=== PATIENT | female | born 1940 | race Caucasian/White ===

== ENCOUNTER 2020-10-02 21:14 | Inpatient (IN) | payer MEDICARE, BC ==
[~2020-10-02] VITALS: Ht 304.8 cm; Wt 75.0 kg
[2020-10-02 22:28] LABS: ALANINE AMINOTRANSFERASE 33 U/L (12-78); ALBUMIN 4.1 G/DL (3.4-5.0); ALBUMIN/GLOBULIN RATIO 1.1 (1.1-1.5); ALKALINE PHOSPHATASE 60 IU/L (46-116); ANION GAP 7 (8-16); ASPARTATE AMINO TRANSFERASE 26 U/L (10-37); BILIRUBIN,TOTAL 0.4 MG/DL (0.1-1.0); BLOOD UREA NITROGEN 17 MG/DL (7-18); BUN/CREATININE RATIO 19.1 (6.6-38.0); CALCIUM 9.6 MG/DL (8.5-10.1); CHLORIDE 107 MMOL/L (99-107); CREATININE 0.89 MG/DL (0.40-0.90); GLUCOSE 100 MG/DL (70-104); POTASSIUM 3.8 MMOL/L (3.5-5.1); SODIUM 143 MMOL/L (135-145); TOTAL CARBON DIOXIDE 29.5 MMOL/L (24-32); eGFR 61 ML/MIN
[2020-10-02 22:30] LABS: BASOPHILS # (AUTO) 0.1 X10'3 (0-0.2); BASOPHILS % (AUTO) 0.7 % (0-1); EOSINOPHILS # (AUTO) 0.1 X10'3 (0-0.9); EOSINOPHILS % (AUTO) 1.7 % (0-6); HEMATOCRIT 41.5 % (35.0-45.0); HEMOGLOBIN 13.7 g/dl (12.0-16.0); LYMPHOCYTES % (AUTO) 28.5 % (21-51); MEAN CORPUSCULAR HEMOGLOBIN 29.9 PG (27.0-31.0); MEAN CORPUSCULAR VOLUME 90.5 FL (78-98); MONOCYTES # (AUTO) 0.6 X10'3 (0-0.9); MONOCYTES % (AUTO) 8.3 % (2-12); NEUTROPHILS # (AUTO) 4.2 X10'3 (1.8-7.7); NEUTROPHILS % (AUTO) 60.8 % (42-75); PLATELET COUNT 340 X10'3 (140-440); RED BLOOD COUNT 4.58 X10'6 (4.20-5.60); RED CELL DISTRIBUTION WIDTH 14.2 % (11.5-14.5)
[2020-10-03] VITALS (9 sets, daily range): BP systolic 107–151; BP diastolic 58–84
[2020-10-03] MEDS ORDERED: nitroGLYCERIN 0.4mg/hour patch TD ONE (01:35)
[2020-10-03] MEDS ORDERED: aspirin 81mg tab.chew PO ONE (01:35)
--- NOTE | 2020-10-03 02:00 | NUR ---
pt told she is now npo
[2020-10-03] MEDS ORDERED: PRAV40TA3 PO (02:08)
[2020-10-03] MEDS ORDERED: ondansetron/PF 4mg/2ml inj IV PRN (03:00)
[2020-10-03] MEDS ORDERED: potassium CL 10mEq/100ml bag 100 ML IV PRN ×2 (03:00)
[2020-10-03] MEDS ORDERED: potassium Cl 20 mEq SR tablet PO PRN ×2 (03:00)
[2020-10-03] MEDS ORDERED: metoprolol tartrate 50mg tablet PO ONE (03:00)
[2020-10-03] MEDS ORDERED: mag hydrox/Alum hydrox/simeth 30ml oral suspension PO PRN (03:00)
[2020-10-03] MEDS ORDERED: acetaminophen 325mg tablet PO PRN (03:00)
[2020-10-03] MEDS ORDERED: magnesium hydroxide 30ml (MOM) UD suspension PO PRN (03:00)
[2020-10-03] MEDS ORDERED: aminophylline 250mg/10ml inj. IV PRN (03:05)
[2020-10-03] MEDS ORDERED: metoprolol tartrate 1mg/ml inj IV PRN (03:05)
[2020-10-03] MEDS ORDERED: nitroGLYCERIN 0.4mg SUBLingual tab SL PRN (03:05)
[2020-10-03 03:22] LABS: HEMOGLOBIN A1C 6.2 % (4.5-6.2)
--- NOTE | 2020-10-03 05:22 | NUR ---
Pt removed IV and got dressed twice after being told she was to be admitted. Pt states she misunderstood. Pt appears to be slightly confused. 3rd IV started in left AC and coban wrapped with intact CSM to left distal arm/hand. Pt tucked into bed and instructed to rest if she can and keep her gown on and IV in. Pt agrees.
[2020-10-03] MEDS ORDERED: regadenoson 0.4mg/5ml syringe IV ONE (06:00)
--- NOTE | 2020-10-03 06:35 | NUR ---
Pt stating she wants to leave, explained to her that her cardiac enzymes continue to rise. She is adament that she is going to leave. Pt does not remember anyone ever talking to her regarding why she is here. Addendum: 10/03/20 at 0842 by [email or web address] Pt has pulled out her IV again and gotten herself dressed.
[2020-10-03] MEDS ORDERED: heparin, porcine 5000 units/ml vial SQ SCH (08:00)
[2020-10-03] MEDS: pravastatin 40mg tablet PO SCH (08:00)
[2020-10-03] MEDS: aspirin 81mg tablet.DR PO SCH (08:00)
[2020-10-03] MEDS: K and/or MAG REPLACEMENT MC SCH ×2 (08:00→20:00)
--- NOTE | 2020-10-03 08:42 | NUR ---
Pt does not remember any of the conversations regarding why she is here. Pt had gotten herself dressed again and adament she is leaving. Pt has forgotten that she drove herself here. Pt states that she does not have any family members. Spoke with Dr Rider and she gave a verbal order for a Chemical Dependency Therapist Consult to evaluate the pt's mental status.
--- NOTE | 2020-10-03 10:30 | NUR ---
Gayle Phan called and said it will probably around 12p.m. when they come get her. The will give another heads up so that we can have the pt ready.
--- NOTE | 2020-10-03 10:44 | NUR ---
Pt's daughter phoned from [facility] to inquire about the patient's status. She reports she will attempt to get off work and come to the hospital to assist in any way possible to manage her mother's situation and help with memory issues for her mother.
--- NOTE | 2020-10-03 11:04 | NUR ---
Pt continues to refuse being hooked up to the color television console monitor and vital signs. Pt did allow for a set of vital signs to be taken.
--- NOTE | 2020-10-03 12:05 | NUR ---
Spoke with Dimitri, he is heading this way from [place] now and should be here in about 20-30 minutes.
--- NOTE | 2020-10-03 12:10 | NUR ---
Spoke with Swetha, Evaporative Cooler Installer regarding pt and the stress test regarding pt's willingness to have the stress test. We are to call her back when Dimitri gets here to see if he is willing to walk the pt through the test.
--- NOTE | 2020-10-03 12:20 | NUR ---
[employer] Tech at bedside. Pt told her that she had toast, cheese, and tea about 30 minutes ago. Let the tech know that she has not had anything to eat.
--- NOTE | 2020-10-03 12:24 | NUR ---
Pt trying to leave. Let pt know Dimitri was on his way to see her. Pt redirected back to her room.
--- NOTE | 2020-10-03 12:25 | NUR ---
Dimitri is here at pt's bedside.
--- NOTE | 2020-10-03 12:30 | NUR ---
[employer] Worker here, explained the pt's situation and gave her the pt's daughter's phone number.
--- NOTE | 2020-10-03 12:33 | NUR ---
Spoke with Suasn in [facility]uc [facility] letting her know that the pt is agreeable to the test and that Dimitri is willing to come with the pt to the test.
--- NOTE | 2020-10-03 12:47 | NUR ---
Pt very cooperative now that Dimitri is here. Pt willingly changed into a hospital gown and allowed us to start an IV.
--- NOTE | 2020-10-03 13:17 | NUR ---
Susan from [employer] will be up shortly to inject the pt with the medicine.
--- NOTE | 2020-10-03 13:32 | NUR ---
Susan from [email or web address] came and injected the medicine into the pt and let the pt and Dimitri know that she would be back in a little bit to take the pt for the test.
--- NOTE | 2020-10-03 13:47 | NUR ---
Dimitri continues to be at bedside. Pt is fully cooperative with Dimitri at bedside.
--- NOTE | 2020-10-03 14:12 | NUR ---
Pt's daughter is Elin. She can be reached at [phone].
--- NOTE | 2020-10-03 16:30 | NUR ---
Patient in room MED 314. I have received report from [facility] and had the opportunity to ask questions and assume patient care. Pt returned from [facility] Scan. Waiting for results. Assessment completed and no changes noted from intial museum assistant, but pt calm andno chest pain noted. Pt in bed her friend Dimitri is with her due to her being confused and resisting care, pulling out IV's. Addendum: 10/03/20 at 1853 by Katie Boone RN She is calm and responsive to care. Her and Dimitri oriented to room, call light, etc And both stated understanding.
[2020-10-03] MEDS ORDERED: heparin 10,000 units/1 ML INJ IV ONE (16:40)
[2020-10-03] MEDS ORDERED: heparin 10,000 units/1 ML INJ IV PRN (16:40)
[2020-10-03] MEDS ORDERED: heparin 25,000 UNIT/250ml bag 250 ML IV SCH (16:55)
--- NOTE | 2020-10-03 17:19 | NUR ---
NOTIFIED PAGER ID: [phone] MESSAGE: Obdulio CONRAD LARIOS. I NUC MED CALLED AND SAID RESULTS FOR [facility]EL[facility] SCAN MAY NOT COME BACK FROM RADIOLOGY UNTIL 399. JOSE DAVID IN NUC MED SAYS HE CAN ANSWER QUESTIONS. TISHA [facility] EXT [id number]
[2020-10-03 17:30] LABS: PARTIAL THROMBOPLASTIN TIME 25 SECONDS (22-32)
[2020-10-03 17:36] LABS: BASOPHILS # (AUTO) 0.1 X10'3 (0-0.2); BASOPHILS % (AUTO) 0.6 % (0-1); EOSINOPHILS # (AUTO) 0.1 X10'3 (0-0.9); EOSINOPHILS % (AUTO) 0.8 % (0-6); HEMOGLOBIN 13.2 g/dl (12.0-16.0); LYMPHOCYTES # (AUTO) 1.3 X10'3 (1.1-4.8); MEAN CORPUSCULAR HEMOGLOBIN 29.9 PG (27.0-31.0); MEAN CORPUSCULAR HGB CONC 32.9 g/dL (33.0-36.5); MEAN CORPUSCULAR VOLUME 90.9 FL (78-98); MEAN PLATELET VOLUME 7.8 FL (7.4-10.4); MONOCYTES # (AUTO) 0.7 X10'3 (0-0.9); MONOCYTES % (AUTO) 6.9 % (2-12); NEUTROPHILS # (AUTO) 7.9 X10'3 (1.8-7.7); NEUTROPHILS % (AUTO) 78.7 % (42-75); PLATELET COUNT 321 X10'3 (140-440); RED CELL DISTRIBUTION WIDTH 14.2 % (11.5-14.5); WHITE BLOOD COUNT 10.1 X10'3 (4.5-11.0)
--- NOTE | 2020-10-03 18:00 | NUR ---
Problems reprioritized. Patient report given, questions answered & plan of care reviewed with Tammie [facility].
--- NOTE | 2020-10-03 18:43 | NUR ---
Patient in room MED 314. I have received report from Katie [facility] and had the opportunity to ask questions and assume patient care.
--- NOTE | 2020-10-03 21:35 | NUR ---
Per telephone call with Dr. Valdes, patient may be on a heart healthy diet, then NPO at midnight.
[2020-10-04 00:26] LABS: CLARITY,URINE CLEAR (Clear); COLOR,URINE YELLOW (Yellow); GLUCOSE, URINE NEGATIVE (Neg); KETONES,URINE TRACE mg/dl (Neg); LEUKOCYTE ESTERASE ,URINE NEGATIVE (Neg); NITRITES, URINE NEGATIVE (Neg); OCCULT BLOOD,URINE SMALL (Neg); PROTEIN,URINE NEGATIVE (Neg); UA COLLECTION TYPE CLN CATCH MIDSTREAM; UROBILINOGEN,URINE 0.2 E.U/dL (0.2-1.0)
[2020-10-04 00:37] LABS: BACTERIA,URINE FEW /HPF (Neg); SQUAMOUS EPITHELIAL CELL,UR FEW /LPF (FEW); WBC,URINE 0-4 /HPF (0-4)
[2020-10-04 02:00] VITALS: BP 121/64
--- NOTE | 2020-10-04 04:45 | NUR ---
patient is non compliant and removes her nasal cannula frequently. she desats in the 70-80s. RN educates and will continue to monitor the patient.
--- NOTE | 2020-10-04 05:34 | NUR ---
patient is refusing to have her leads on. RN educated patient on importance. RN will continue to monitor
[2020-10-04 06:00] VITALS: BP 124/69
--- NOTE | 2020-10-04 06:00 | NUR ---
Patient in room MED [facility]. [facility] had [facility] opportunity to ask questions and assume patient care.
--- NOTE | 2020-10-04 06:00 | NUR ---
Patient in room MED 316. I have received report from Robyn [facility] and had the opportunity to ask questions and assume patient care.
--- NOTE | 2020-10-04 06:13 | NUR ---
Problems reprioritized. Patient report given, questions answered & plan of care reviewed with Vaishali [facility]. Addendum: 10/04/20 at 0631 by Robyn Coronel RN Katie [facility]
--- NOTE | 2020-10-04 06:31 | NUR ---
patient is refusing lab to draw her cardiac PTT. I educated patient on importance of lab and importance of medication. Patient refuses. RN will continue to educate and monitor. Lab will come back within an hour to attempt to draw lab.
--- NOTE | 2020-10-04 07:00 | NUR ---
Pt has been refusing Labs, Vital Signs, and assessment this morning. Her daughter is at bedside and trying to convince her but she continues to refuse and not let anyone touch her. will continue to try.
--- NOTE | 2020-10-04 08:16 | NUR ---
DR. VANESSA PAGED: PAGER ID: [phone] MESSAGE: [phone]: HARRIET Patino neg yesterday, ok to d/c heparin? pt non-compliant with all care. nurse Radha [phone]
--- NOTE | 2020-10-04 08:20 | NUR ---
HEP GTT OFF, PATIENT NOT WANTING TO REMAIN COMPLIANT WITH MEDICATION THERAPY, MD PAGED, AWAITING CALL BACK. STRESS TEST NEGATIVE YESTERDAY. SPOKE WITH DAUGHTER @ BEDSIDE ABOUT POSSIBILITY OF DISCHARGE HOME FOR PATIENT. DAUGHTER WANTING TO SPEAK WITH CASE MANAGEMENT: FAMILY CONCERNED ABOUT PATIENTS ABILITY TO CARE FOR SELF AT HOME, PATIENT CURRENTLY LIVES ALONE, CLOSEST DAUGHTER LIVES IN [place], [place]; FRIENDS NEARBY ABLE TO WELLNESS CHECK OCCASIONALLY.
[2020-10-04 09:14] LABS: BASOPHILS % (AUTO) 0.6 % (0-1); EOSINOPHILS # (AUTO) 0.2 X10'3 (0-0.9); EOSINOPHILS % (AUTO) 2.6 % (0-6); HEMATOCRIT 41.3 % (35.0-45.0); HEMOGLOBIN 13.6 g/dl (12.0-16.0); LYMPHOCYTES # (AUTO) 2.3 X10'3 (1.1-4.8); MEAN CORPUSCULAR HEMOGLOBIN 29.7 PG (27.0-31.0); MEAN CORPUSCULAR VOLUME 90.1 FL (78-98); MEAN PLATELET VOLUME 7.9 FL (7.4-10.4); MONOCYTES # (AUTO) 0.6 X10'3 (0-0.9); MONOCYTES % (AUTO) 8.5 % (2-12); NEUTROPHILS % (AUTO) 56.3 % (42-75); PLATELET COUNT 333 X10'3 (140-440); RED BLOOD COUNT 4.59 X10'6 (4.20-5.60); RED CELL DISTRIBUTION WIDTH 14.3 % (11.5-14.5); WHITE BLOOD COUNT 7.2 X10'3 (4.5-11.0)
[2020-10-04 09:35] LABS: ALANINE AMINOTRANSFERASE 32 U/L (12-78); ALBUMIN 3.7 G/DL (3.4-5.0); ALBUMIN/GLOBULIN RATIO 0.9 (1.1-1.5); ALKALINE PHOSPHATASE 63 IU/L (46-116); ANION GAP 8 (8-16); ASPARTATE AMINO TRANSFERASE 27 U/L (10-37); BILIRUBIN,TOTAL 0.5 MG/DL (0.1-1.0); BLOOD UREA NITROGEN 15 MG/DL (7-18); BUN/CREATININE RATIO 18.3 (6.6-38.0); CALCIUM 9.1 MG/DL (8.5-10.1); CHLORIDE 106 MMOL/L (99-107); CHOLESTEROL 272 MG/DL (0-200); CREATININE 0.82 MG/DL (0.40-0.90); GLUCOSE 101 MG/DL (70-104); HDL CHOLESTEROL 54 MG/DL (35-60); LDL CHOLESTEROL 190 MG/DL (50-100); POTASSIUM 3.9 MMOL/L (3.5-5.1); SODIUM 143 MMOL/L (135-145); TOTAL CARBON DIOXIDE 29.2 MMOL/L (24-32); TOTAL PROTEIN 7.6 G/DL (6.4-8.2); TRIGLYCERIDES 145 MG/DL (20-135); eGFR 67 ML/MIN
[2020-10-04 10:00] VITALS: BP 130/72
[2020-10-04] MEDS: pravastatin 40mg tablet PO SCH (11:30)
[2020-10-04] MEDS: aspirin 81mg tablet.DR PO SCH (11:31)
--- NOTE | 2020-10-04 12:10 | NUR ---
The pt had a negative Carey and all VSS have remained stable. Her daughter is with her at bedside. Pt is much clearer today and A&O x4 at this time. Discharge orders received. IV discontinued and no s/s of complications. Pt and daughter given all discharge instructions and education and they both stated understanding. All belongings accounted for. Pt was escorted in a wheelchair to her daughter awaiting in vehicle to drive her home.
== END 2020-10-04 12:10 | disposition home or self-care (01) | DRG 282 ==
LOC: ER 21:18 → ED HOLD 10-03 03:00 → MED 3N 10-03 14:42
PROVIDERS: ADMIT Internal Medicine; ATTEND Internal Medicine
PROC: 4A02XM4 Measurement of Cardiac Total Activity, External Approach (ICD-10-PCS; principal; 2020-10-03)
PROC: 3E073KZ Introduction of Other Diagnostic Substance into Coronary Artery, Percutaneous Approach (ICD-10-PCS; 2020-10-03)
DX: I21.4 Non-ST elevation (NSTEMI) myocardial infarction (principal); E78.5 Hyperlipidemia, unspecified; Z20.828 Contact with and (suspected) exposure to other viral communicable diseases; Z79.899 Other long term (current) drug therapy
CPT/HCPCS: 36415; 71045; 78452; 80053; 80061; 81001; 83036; 83880; 84484; 85025; 85610; 85730; 87081; 87635; 93005; 93017; 93306; 93308; 99285; A9500; C9803; G0378; J1644; J2405; J2785

== ENCOUNTER 2020-12-09 08:51 | Emergency (ER) | payer MEDICARE, BC ==
[~2020-12-09] VITALS: Ht 152.4 cm; Wt 92.2 kg
[~2020-12-09 08:51] MED LIST: PRAV40TA3 PO
[2020-12-09 10:04] LABS: CLARITY,URINE SLIGHTLY CLOUDY (Clear); COLOR,URINE YELLOW (Yellow); GLUCOSE, URINE NEGATIVE (Neg); KETONES,URINE NEGATIVE (Neg); LEUKOCYTE ESTERASE ,URINE TRACE (Neg); NITRITES, URINE NEGATIVE (Neg); OCCULT BLOOD,URINE MODERATE (Neg); PROTEIN,URINE 30 mg/dl (Neg); UROBILINOGEN,URINE 0.2 E.U/dL (0.2-1.0)
[2020-12-09 10:09] LABS: UA COLLECTION TYPE CLN CATCH MIDSTREAM
[2020-12-09 10:12] LABS: BASOPHILS # (AUTO) 0.1 X10'3 (0-0.2); BASOPHILS % (AUTO) 1.2 % (0-1); EOSINOPHILS # (AUTO) 0.1 X10'3 (0-0.9); EOSINOPHILS % (AUTO) 1.8 % (0-6); HEMATOCRIT 41.5 % (35.0-45.0); HEMOGLOBIN 13.6 g/dl (12.0-16.0); LYMPHOCYTES # (AUTO) 1.4 X10'3 (1.1-4.8); LYMPHOCYTES % (AUTO) 28.9 % (21-51); MEAN CORPUSCULAR HEMOGLOBIN 29.5 PG (27.0-31.0); MEAN CORPUSCULAR HGB CONC 32.9 g/dL (33.0-36.5); MEAN CORPUSCULAR VOLUME 89.8 FL (78-98); MEAN PLATELET VOLUME 7.8 FL (7.4-10.4); MONOCYTES # (AUTO) 0.4 X10'3 (0-0.9); MONOCYTES % (AUTO) 9.4 % (2-12); NEUTROPHILS # (AUTO) 2.8 X10'3 (1.8-7.7); NEUTROPHILS % (AUTO) 58.7 % (42-75); PLATELET COUNT 287 X10'3 (140-440); RED BLOOD COUNT 4.62 X10'6 (4.20-5.60); RED CELL DISTRIBUTION WIDTH 14.2 % (11.5-14.5); WHITE BLOOD COUNT 4.7 X10'3 (4.5-11.0)
[2020-12-09 10:13] LABS: MUCUS STRANDS MANY /LPF (Neg)
[2020-12-09 10:15] LABS: SQUAMOUS EPITHELIAL CELL,UR MANY /LPF (FEW)
[2020-12-09 10:18] LABS: BACTERIA,URINE FEW /HPF (Neg)
[2020-12-09 10:25] LABS: ALANINE AMINOTRANSFERASE 34 U/L (12-78); ALBUMIN 3.7 G/DL (3.4-5.0); ALBUMIN/GLOBULIN RATIO 0.9 (1.1-1.5); ALKALINE PHOSPHATASE 63 IU/L (46-116); ANION GAP 8 (8-16); ASPARTATE AMINO TRANSFERASE 30 U/L (10-37); BILIRUBIN,TOTAL 0.5 MG/DL (0.1-1.0); BLOOD UREA NITROGEN 17 MG/DL (7-18); BUN/CREATININE RATIO 23.6 (6.6-38.0); CALCIUM 9.1 MG/DL (8.5-10.1); CHLORIDE 108 MMOL/L (99-107); CREATININE 0.72 MG/DL (0.40-0.90); GLUCOSE 101 MG/DL (70-104); POTASSIUM 3.7 MMOL/L (3.5-5.1); SODIUM 144 MMOL/L (135-145); TOTAL CARBON DIOXIDE 27.6 MMOL/L (24-32); TOTAL PROTEIN 7.6 G/DL (6.4-8.2); eGFR 78 ML/MIN
[2020-12-09 10:50] VITALS: BP 168/86
== END 2020-12-09 10:51 | disposition home or self-care (01) ==
LOC: ER 08:52
DX: R60.0 Localized edema (principal); I10 Essential (primary) hypertension; E78.00 Pure hypercholesterolemia, unspecified; Z79.899 Other long term (current) drug therapy
CPT/HCPCS: 36415; 80053; 81001; 83880; 85025; 99283